=== PATIENT | female | born 1930 | race Caucasian/White ===

== ENCOUNTER → 2017-10-26 | Outpatient (REF) | payer MEDICARE, OTHER ==
[2017-10-26 17:55] LABS: FERRITIN 754 NG/ML (8-252); IRON (FE) 100 UG/DL (50-170); PERCENT SATURATION 49.3 % (13.2-45.0); TOTAL IRON BINDING CAPACITY 203 UG/DL (250-450)
[2017-10-26 18:03] LABS: FOLATE > 24.0 NG/ML; VITAMIN B12 LEVEL 730 PG/ML
== END ==
LOC: M LAB REF 16:56
DX: D64.9 Anemia, unspecified (principal)
CPT/HCPCS: 82746

== ENCOUNTER → 2018-04-11 | Outpatient (REF) | payer MEDICARE, OTHER ==
[2018-04-11 14:40] LABS: FREE T4 1.13 NG/DL (0.76-1.46)
== END ==
LOC: M SFHCCLAY 08:54
DX: E03.9 Hypothyroidism, unspecified (principal)
CPT/HCPCS: 84443